=== PATIENT | female | born 1980 | race Caucasian/White ===

== ENCOUNTER → 2016-06-13 | Outpatient (CLI) | payer BC | LOC: HEART 5 05-23 14:00 | DX: R00.2 Palpitations (principal) ==

== ENCOUNTER → 2016-07-10 | Outpatient (CLI) | payer BC, OTHER | LOC: HEART 5 11:14 | DX: I49.3 Ventricular premature depolarization (principal); R00.2 Palpitations ==

== ENCOUNTER → 2016-08-20 | Outpatient (CLI) | payer BC | LOC: KOH-I 08:39 | DX: M84.474A Pathological fracture, right foot, initial encounter for fracture (principal) | CPT/HCPCS: 73718 ==

== ENCOUNTER 2020-07-28 12:45 | Emergency (ER) | payer BC ==
[~2020-07-28 12:45] MED LIST: LISINOPRIL10 MG PO; MACRODANTIN100 MG PO; OMNICEF 300 MG300 MG PO; ZOFRAN ODT 4 MG4 MG SL
[2020-07-28 13:46] LABS: HEMOGLOBIN 15.9 gm/dl (12.3-15.3); RED BLOOD COUNT 5.54 M/UL (4.00-5.10); WHITE BLOOD COUNT 8.9 K/UL (4.5-11.0)
[2020-07-28 14:08] LABS: BUN/CREATININE RATIO 19 (0-10)
[2020-07-28] MEDS ORDERED: CEFUROXIME500 MG PO (15:31)
[2020-07-28] MEDS ORDERED: ZOFRAN4 MG PO (15:31)
== END 2020-07-28 16:16 | disposition home or self-care (01) ==
LOC: ER1 12:45
PROVIDERS: Physician Assistant
DX: N39.0 Urinary tract infection, site not specified (principal); E87.6 Hypokalemia; R19.7 Diarrhea, unspecified; I10 Essential (primary) hypertension; F17.210 Nicotine dependence, cigarettes, uncomplicated; Z79.899 Other long term (current) drug therapy
CPT/HCPCS: 80053; 81001; 84703; 85025; 96374; 96375; 99284; J0696; J2270; J2405; J7030

== ENCOUNTER 2021-04-05 15:03 | Emergency (ER) | payer BC ==
[~2021-04-05 15:03] MED LIST changes: +CEFUROXIME500 MG PO; +ZOFRAN4 MG PO
[2021-04-05 15:34] LABS: HEMOGLOBIN 15.8 gm/dl (12.3-15.3); RED BLOOD COUNT 5.44 M/UL (4.00-5.10); WHITE BLOOD COUNT 15.7 K/UL (4.5-11.0)
[2021-04-05 16:25] LABS: BUN/CREATININE RATIO 12 (0-10)
[2021-04-05] MEDS ORDERED: OMNICEF 300 MG300 MG PO (17:15)
== END 2021-04-05 17:40 | disposition home or self-care (01) ==
LOC: ER1 15:03
PROVIDERS: Emergency Medicine
DX: N39.0 Urinary tract infection, site not specified (principal); F41.9 Anxiety disorder, unspecified; D72.829 Elevated white blood cell count, unspecified; F17.200 Nicotine dependence, unspecified, uncomplicated
CPT/HCPCS: 70450; 71045; 80053; 81001; 82550; 82553; 83874; 84484; 84703; 85025; 87086; 93005; 96374; 96375; 99283; J0696

== ENCOUNTER 2021-07-30 19:49 | Emergency (ER) | payer BC ==
[2021-07-30 21:08] LABS: HEMOGLOBIN 14.3 gm/dl (12.3-15.3); RED BLOOD COUNT 4.86 M/UL (4.00-5.10); WHITE BLOOD COUNT 9.9 K/UL (4.5-11.0)
[2021-07-30 21:56] LABS: BUN/CREATININE RATIO 15 (0-10)
== END 2021-07-31 00:06 | disposition left against medical advice (07) ==
LOC: ER1 19:49
PROVIDERS: Physician Assistant
DX: R07.9 Chest pain, unspecified (principal); F17.200 Nicotine dependence, unspecified, uncomplicated
CPT/HCPCS: 71045; 80053; 82550; 82553; 84484; 85025; 93005; 99283

== ENCOUNTER 2021-09-04 19:53 | Emergency (ER) | payer OTHER ==
[2021-09-04 23:13] LABS: HEMOGLOBIN 14.6 gm/dl (12.3-15.3); RED BLOOD COUNT 4.96 M/UL (4.00-5.10); WHITE BLOOD COUNT 13.1 K/UL (4.5-11.0)
[2021-09-05] MEDS ORDERED: IBUPROFEN800 MG PO (01:18)
[2021-09-05] MEDS ORDERED: ONDANSETRON ODT4 MG SL (01:18)
[2021-09-05] MEDS ORDERED: CEFUROXIME500 MG PO (01:18)
[2021-09-05] MEDS ORDERED: PYRIDIUM200 MG PO (01:18)
== END 2021-09-05 01:38 | disposition home or self-care (01) ==
LOC: ER1 19:53
PROVIDERS: Physician Assistant
DX: N83.202 Unspecified ovarian cyst, left side (principal); S39.012A Strain of muscle, fascia and tendon of lower back, initial encounter; N39.0 Urinary tract infection, site not specified; I10 Essential (primary) hypertension; E03.9 Hypothyroidism, unspecified; F17.200 Nicotine dependence, unspecified, uncomplicated; X58.XXXA Exposure to other specified factors, initial encounter
CPT/HCPCS: 80053; 81001; 83690; 84703; 85025; 87086; 96374; 99284; J1885; Q9967

== ENCOUNTER 2021-11-05 17:17 | Emergency (ER) | payer OTHER ==
[~2021-11-05 17:17] MED LIST changes: +IBUPROFEN800 MG PO; +ONDANSETRON ODT4 MG SL; +PYRIDIUM200 MG PO
== END 2021-11-05 19:46 | disposition home or self-care (01) ==
LOC: ER1 17:17
DX: S60.221A Contusion of right hand, initial encounter (principal); S60.414A Abrasion of right ring finger, initial encounter; F17.200 Nicotine dependence, unspecified, uncomplicated; W22.8XXA Striking against or struck by other objects, initial encounter
CPT/HCPCS: 73130; 90471; 90715; 99283

== ENCOUNTER → 2021-12-10 | Outpatient (CLI) | payer OTHER | LOC: MRI 11:00 | DX: Z00.00 Encounter for general adult medical examination without abnormal findings (principal); F43.23 Adjustment disorder with mixed anxiety and depressed mood; G56.03 Carpal tunnel syndrome, bilateral upper limbs; R20.0 Anesthesia of skin; F17.200 Nicotine dependence, unspecified, uncomplicated; G43.109 Migraine with aura, not intractable, without status migrainosus; F44.5 Conversion disorder with seizures or convulsions; R56.9 Unspecified convulsions | CPT/HCPCS: 36415; 70553; 82565; 84520; A9577 ==